=== PATIENT | female | born 1965 | race Caucasian/White ===

== ENCOUNTER 2020-10-19 23:30 | Emergency (ER) | payer OTHER ==
[~2020-10-19] VITALS: Ht 167.6 cm; Wt 106.6 kg
[~2020-10-19 23:30] MED LIST: ALBU90OI INH; AZIT250 PO; DIPH25; PRED20 PO
== END 2020-10-20 01:10 | disposition home or self-care (01) ==
LOC: ER 23:30
DX: M54.41 Lumbago with sciatica, right side (principal); I10 Essential (primary) hypertension; F17.200 Nicotine dependence, unspecified, uncomplicated; Z79.52 Long term (current) use of systemic steroids; Z79.899 Other long term (current) drug therapy
CPT/HCPCS: 96372; 99283-25; J1885

== ENCOUNTER 2020-10-24 07:58 | Emergency (ER) | payer OTHER ==
[~2020-10-24] VITALS: Ht 170.2 cm; Wt 107.5 kg
[2020-10-24] MEDS ORDERED: Prinivil10 MG PO (08:18)
[2020-10-24] MEDS ORDERED: GABA300 PO (08:19)
[2020-10-24] MEDS ORDERED: ATOR10 PO (08:19)
[2020-10-24] MEDS ORDERED: MELO7.5 PO (08:19)
[2020-10-24] MEDS ORDERED: Robaxin750 MG PO (08:20)
[2020-10-24 09:04] LABS: BASOPHILS ABSOLUTE AUTO 0.04 K/mm3 (0.00-0.23); BASOPHILS PERCENT AUTO 1 % (0-2); EOSINOPHILS ABSOLUTE AUTO 0.25 K/mm3 (0.00-0.68); EOSINOPHILS PERCENT AUTO 4 % (0-6); Hematocrit 38.7 % (33.0-51.0); IMMATURE GRAN ABSOLUTE AUTO 0.04 K/mm3 (0.00-0.10); IMMATURE GRAN PERCENT AUTO 1 % (0-1); LYMPHOCYTES ABSOLUTE AUTO 0.67 K/mm3 (0.84-5.20); LYMPHOCYTES PERCENT AUTO 9 % (21-46); MONOCYTES ABSOLUTE AUTO 0.54 K/mm3 (0.16-1.47); MONOCYTES PERCENT AUTO 8 % (4-13); Mean Corpuscular HGB 32.7 pg (26.0-34.0); Mean Corpuscular HGB Conc 33.6 g/dL (31.5-36.5); Mean Corpuscular Volume 98 fL (80-100); NEUTROPHILS ABSOLUTE AUTO 5.67 K/mm3 (1.96-9.15); NEUTROPHILS PERCENT AUTO 79 % (41-73); Platelet Count 153 K/mm3 (150-400); RDW Coefficient Variation 15.8 % (11.7-14.2); RDW Standard Deviation 56.6 fL (35.1-46.3); Red Blood Cell Count 3.97 M/mm3 (3.80-5.20); White Blood Cell Count 7.21 K/mm3 (4.00-11.30)
[2020-10-24 09:31] LABS: Alanine Aminotransfer (ALT/SGP 627 U/L (12-78); Albumin, Blood 3.1 g/dL (3.4-5.0); Albumin/Globulin Ratio 0.9 (0.8-1.8); Alk Phos 115 U/L (50-136); Anion Gap 10 mmol/L (6-16); Aspartate Aminotrans (AST/SGOT 1023 U/L (12-37); Bilirubin, Total 1.3 mg/dL (0.1-1.0); Blood Urea Nitrogen 18 mg/dL (8-24); Bun/Creatinine Ratio 25.2 (12.0-20.0); CO2, Blood 23 mmol/L (21-32); Calcium, Blood 8.1 mg/dL (8.5-10.1); Chloride, Blood 101 mmol/L (98-108); Creatinine, Blood 0.71 mg/dL (0.40-1.00); Globulin, Blood 3.3 g/dL (2.2-4.0); Glomerular Filtration Rate >60 (60-); Glucose, Blood 99 mg/dL (70-99); Potassium, Blood 3.2 mmol/L (3.5-5.5); Sodium, Blood 134 mmol/L (136-145); Total Protein, Blood 6.4 g/dL (6.4-8.2)
[2020-10-24 12:23] LABS: Source, Urine Clean Catch
[2020-10-24 12:27] LABS: Appearance, Urine Clear (Clear); Blood, Urine 2+ (Neg); Color, Urine Yellow (P-Yellow); Glucose Qualitative, Urine Neg (Neg); Ketones, Urine 1+ (Neg); Leukocyte Esterase, Urine Neg (Neg); Nitrite, Urine Neg (Neg); Protein, Urine 2+ (Neg); Specific Gravity, Urine 1.025 (1.003-1.022); Urobilinogen, Urine 2+ (Normal)
[2020-10-24 12:47] LABS: Bilirubin, Urine 1+ (Neg)
[2020-10-24 12:49] LABS: Bacteria Mod /hpf; Mucus Heavy (0-Heavy); Squamous Epithelial Cells Mod /hpf (Few)
[2020-10-24] MEDS ORDERED: Roxicodone5 MG PO (15:08)
[2020-10-25 07:13] LABS: HBSAG SCREEN Negative (Negative); HEP A AB, IGM Negative (Negative); HEP B CORE AB, IGM Negative (Negative); HEP C VIRUS AB <0.1 (0.0-0.9)
== END 2020-10-24 15:20 | disposition home or self-care (01) ==
LOC: ER 07:58
PROVIDERS: Physician Assistant
DX: R19.00 Intra-abdominal and pelvic swelling, mass and lump, unspecified site (principal); I10 Essential (primary) hypertension; F17.200 Nicotine dependence, unspecified, uncomplicated; Z79.899 Other long term (current) drug therapy
CPT/HCPCS: 36415; 74176; 76705; 80053; 80074; 81001; 83690; 84484; 85025; 87086; 93005; 93010; 96374; 96375; 99285-25; G0480; J1170; J1885; J7030

== ENCOUNTER 2021-01-18 01:42 | Emergency (ER) | payer OTHER ==
[~2021-01-18] VITALS: Ht 167.6 cm; Wt 106.6 kg
[~2021-01-18 01:42] MED LIST changes: +ATOR10 PO; +GABA300 PO; +MELO7.5 PO; +Prinivil10 MG PO; +Robaxin750 MG PO; +Roxicodone5 MG PO
[2021-01-18] MEDS ORDERED: ERGO400 PO (01:54)
[2021-01-18] MEDS ORDERED: FERSU300 PO (01:54)
[2021-01-18] MEDS ORDERED: MELO7.5 PO (01:55)
[2021-01-18] MEDS ORDERED: IBUP200 PO (01:55)
[2021-01-18] MEDS ORDERED: HYDCHL25 PO (01:55)
[2021-01-18] MEDS ORDERED: POTA10T PO (01:56)
[2021-01-18] MEDS ORDERED: MIRALAX17 GM PO (01:56)
[2021-01-18] MEDS ORDERED: ELLZIA PAK1 EACH TP (01:57)
== END 2021-01-18 03:46 | disposition home or self-care (01) ==
LOC: ER 01:42
DX: M25.551 Pain in right hip (principal); I10 Essential (primary) hypertension; F17.200 Nicotine dependence, unspecified, uncomplicated; Z91.040 Latex allergy status; Z79.899 Other long term (current) drug therapy
CPT/HCPCS: 96374; 96375; 99284-25; A9270; J1170; J1885

== ENCOUNTER 2021-02-07 04:08 | Day surgery (SDC) | payer OTHER ==
[~2021-02-07 04:08] MED LIST changes: +ELLZIA PAK1 EACH TP; +ERGO400 PO; +FERSU300 PO; +HYDCHL25 PO; +IBUP200 PO; +MIRALAX17 GM PO; +POTA10T PO
[2021-02-07] MEDS ORDERED: OXYC5 PO (11:44)
[2021-02-07] MEDS ORDERED: ACET500 PO (11:45)
[2021-02-07] MEDS ORDERED: CELE100 PO (11:46)
[2021-02-07] MEDS ORDERED: AMLO10 PO (11:46)
[2021-02-07] MEDS ORDERED: DEXA2 PO (11:47)
[2021-02-07] MEDS ORDERED: DULO60 PO (11:48)
[2021-02-07] MEDS ORDERED: LISI5 PO (11:48)
[2021-02-07] MEDS ORDERED: MCT OIL (11:49)
[2021-02-07] MEDS ORDERED: MULVITA PO (11:50)
[2021-02-07] MEDS ORDERED: OMEP20ER PO (11:50)
[2021-02-07] MEDS ORDERED: METH5 PO (11:50)
[2021-02-07] MEDS ORDERED: PROC5 PO (11:51)
[2021-02-07] MEDS ORDERED: SENN187 PO (11:51)
[2021-02-07] MEDS ORDERED: TIZA4 (11:52)
== END 2021-02-07 11:17 | disposition home or self-care (01) ==
LOC: ATC 04:08
DX: C79.89 Secondary malignant neoplasm of other specified sites (principal)
CPT/HCPCS: 99211

== ENCOUNTER 2021-02-14 02:57 | Day surgery (SDC) | payer OTHER ==
[~2021-02-14 02:57] MED LIST changes: +ACET500 PO; +AMLO10 PO; +CELE100 PO; +DEXA2 PO; +DULO60 PO; +LISI5 PO; +MCT OIL; +METH5 PO; +MULVITA PO; +OMEP20ER PO; +OXYC5 PO; +PROC5 PO; +SENN187 PO; +TIZA4
[2021-02-14] MEDS ORDERED: MIRALAX17 GM PO (11:20)
[2021-02-14] MEDS ORDERED: OMEP20ER PO (11:23)
[2021-02-14] MEDS ORDERED: METH5 PO ×2 (11:40)
--- NOTE | 2021-02-14 14:31 | NUR ---
PT DID NOT SHOW FOR HER APPOINTMENT IN THE LAST THIS MORNING.
[2021-02-14] MEDS ORDERED: PREG300 PO (17:18)
[2021-02-15] MEDS ORDERED: CEPH500 PO (13:27)
== END 2021-02-14 22:56 | disposition home or self-care (01) ==
LOC: ATC 02:57
DX: C79.89 Secondary malignant neoplasm of other specified sites (principal); G89.3 Neoplasm related pain (acute) (chronic); I10 Essential (primary) hypertension; E78.5 Hyperlipidemia, unspecified; K21.9 Gastro-esophageal reflux disease without esophagitis; F17.210 Nicotine dependence, cigarettes, uncomplicated; R57.1 Hypovolemic shock; N17.9 Acute kidney failure, unspecified; D50.9 Iron deficiency anemia, unspecified

== ENCOUNTER 2021-02-26 02:16 | Day surgery (SDC) | payer OTHER ==
[~2021-02-26 02:16] MED LIST changes: +CEPH500 PO; +PREG300 PO
== END 2021-02-26 09:52 | disposition home or self-care (01) ==
LOC: ATC 02:16
DX: C79.89 Secondary malignant neoplasm of other specified sites (principal)
CPT/HCPCS: 99211

== ENCOUNTER 2021-03-05 04:33 | Day surgery (SDC) | payer OTHER | END 2021-03-05 09:18 | disposition home or self-care (01) | LOC: ATC 04:33 | DX: C79.89 Secondary malignant neoplasm of other specified sites (principal); Z91.040 Latex allergy status | CPT/HCPCS: 99211 ==

== ENCOUNTER 2021-03-19 05:21 | Day surgery (SDC) | payer OTHER | END 2021-03-19 09:24 | disposition home or self-care (01) | LOC: ATC 05:21 | DX: C49.9 Malignant neoplasm of connective and soft tissue, unspecified (principal); C79.9 Secondary malignant neoplasm of unspecified site | CPT/HCPCS: 99211 ==

== ENCOUNTER 2021-04-25 05:38 | Day surgery (SDC) | payer OTHER ==
[2021-04-25] MEDS ORDERED: FURO20 PO (09:04)
--- NOTE | 2021-04-25 09:29 | NUR ---
PT BP OF 75/54 THIS AM. WATER BOTTLE PROVIDED & PT STATES SHE HAS NOT DRANK MUCH THIS AM. PT DENIES FEELING FAINT OR DIZZY. ATTEMP TO NOTIFIED DR. FRANCO OFFICE AND [facility], BUT WAS UNABLE TO GET THROUGH TO EITHER OFFICE. PT BP INCREASED TO 90/63 AFTER FINISHING FIRST WATER BOTTLE. PT AMBULATED WITHOUT GETTING DIZZY. ANOTHER WATERBOTTLE WAS PRVIDED AND PT STATES SHE WILL RECHECK BP WHEN SHE GETS HOME. ADVISED TO RETURN TO ER IF BP FALLS AGAIN.
== END 2021-04-25 09:28 | disposition home or self-care (01) ==
LOC: ATC 05:38
DX: C79.89 Secondary malignant neoplasm of other specified sites (principal)
CPT/HCPCS: 99211

== ENCOUNTER 2021-05-09 05:54 | Day surgery (SDC) | payer OTHER ==
[~2021-05-09 05:54] MED LIST changes: +FURO20 PO
== END 2021-05-09 08:45 | disposition home or self-care (01) ==
LOC: ATC 05:54
DX: C49.9 Malignant neoplasm of connective and soft tissue, unspecified (principal); Z91.040 Latex allergy status
CPT/HCPCS: 99211

== ENCOUNTER 2021-05-16 05:00 | Day surgery (SDC) | payer OTHER | END 2021-05-16 08:40 | disposition home or self-care (01) | LOC: ATC 05:00 | DX: Z45.2 Encounter for adjustment and management of vascular access device (principal); C49.9 Malignant neoplasm of connective and soft tissue, unspecified | CPT/HCPCS: 99211 ==

== ENCOUNTER 2021-06-26 12:52 | Emergency (ER) | payer OTHER ==
[~2021-06-26] VITALS: Ht 167.6 cm; Wt 91.6 kg
== END 2021-06-26 15:45 | disposition home or self-care (01) ==
LOC: ER 12:52
DX: R60.0 Localized edema (principal); G89.29 Other chronic pain; R20.0 Anesthesia of skin; C49.5 Malignant neoplasm of connective and soft tissue of pelvis; Z91.040 Latex allergy status; Z88.8 Allergy status to other drugs, medicaments and biological substances; Z79.899 Other long term (current) drug therapy; F17.210 Nicotine dependence, cigarettes, uncomplicated; I10 Essential (primary) hypertension
CPT/HCPCS: 99283

== ENCOUNTER → 2021-06-26 | Outpatient (CLI) | payer OTHER ==
[2021-06-26 11:01] LABS: BASOPHILS ABSOLUTE AUTO 0.02 K/mm3 (0.00-0.23); BASOPHILS PERCENT AUTO 0 % (0-2); EOSINOPHILS ABSOLUTE AUTO 0.13 K/mm3 (0.00-0.68); EOSINOPHILS PERCENT AUTO 3 % (0-6); Hematocrit 39.1 % (33.0-51.0); Hemoglobin 12.1 g/dL (11.5-16.0); IMMATURE GRAN ABSOLUTE AUTO 0.01 K/mm3 (0.00-0.10); IMMATURE GRAN PERCENT AUTO 0 % (0-1); LYMPHOCYTES ABSOLUTE AUTO 0.61 K/mm3 (0.84-5.20); LYMPHOCYTES PERCENT AUTO 12 % (21-46); MONOCYTES ABSOLUTE AUTO 0.68 K/mm3 (0.16-1.47); MONOCYTES PERCENT AUTO 13 % (4-13); Mean Corpuscular HGB 27.8 pg (26.0-34.0); Mean Corpuscular HGB Conc 30.9 g/dL (31.5-36.5); Mean Corpuscular Volume 90 fL (80-100); Mean Platelet Volume 11.1 fL (9.1-12.4); NEUTROPHILS PERCENT AUTO 72 % (41-73); Platelet Count 240 K/mm3 (150-400); Red Blood Cell Count 4.35 M/mm3 (3.80-5.20); White Blood Cell Count 5.15 K/mm3 (4.00-11.30)
[2021-06-26 11:20] LABS: Alanine Aminotransfer (ALT/SGP 15 U/L (12-78); Albumin, Blood 3.2 g/dL (3.4-5.0); Alk Phos 90 U/L (50-136); Anion Gap 5 mmol/L (6-16); Aspartate Aminotrans (AST/SGOT 18 U/L (12-37); Bilirubin, Direct <0.1 mg/dL (0.0-0.3); Bilirubin, Indirect Unable to Calculate mg/dL (0.1-0.7); Bilirubin, Total 0.3 mg/dL (0.1-1.0); Blood Urea Nitrogen 18 mg/dL (8-24); Bun/Creatinine Ratio 29.1 (12.0-20.0); CO2, Blood 29 mmol/L (21-32); Calcium, Blood 8.9 mg/dL (8.5-10.1); Chloride, Blood 106 mmol/L (98-108); Creatinine, Blood 0.62 mg/dL (0.40-1.00); Globulin, Blood 3.1 g/dL (2.2-4.0); Glomerular Filtration Rate >60 (60-); Glucose, Blood 90 mg/dL (70-99); Potassium, Blood 4.1 mmol/L (3.5-5.5); Sodium, Blood 140 mmol/L (136-145); Total Protein, Blood 6.3 g/dL (6.4-8.2)
== END ==
LOC: LAB SHORT 10:15 → LAB 10:15
PROVIDERS: Emergency Medicine
DX: L03.818 Cellulitis of other sites (principal)
CPT/HCPCS: 80053; 82248; 85025